=== PATIENT | male | born 1990 | race African-American/Black ===

== ENCOUNTER 2020-06-13 23:53 | Emergency (ER) | payer SELFPAY ==
[~2020-06-13] VITALS: Ht 175.3 cm; Wt 74.0 kg
--- NOTE | 2020-06-14 00:03 | NUR ---
THIS IS A 30 YO MALE BIB [facility] FROM [facility] FOR ETOH INTOXICATION AND LAYING ON FLOOR. PER [facility], PATIENT'S FRIEND CALLED BECAUSE "HE DIDN'T WANT TO DEAL WITH HIM". PATIENT IS SOMNOLENT, AROUSES TO PAINFUL STIMULI. EMESIS NOTED ON FRONT OF SHIRT. PLACED ON 2L NC DUE TO 88% ON RA. ALL OTHER VSS, PATIENT SLEEPING. PIV PLACED BY [facility], GIVEN 500ML NS AND 4MG ZOFRAN. MONITORING IN PLACE. Addendum: 06/14/20 at 0059 by BABAK PATIENT UNABLE TO RESPOND TO CLINICAL/PHYSICAL QUESTIONS
[2020-06-14 00:32] LABS: BASOPHILS # (AUTO) 0.01 x10^3/uL (0-0.1); BASOPHILS % (AUTO) 1 % (0-1); EOSINOPHILS # (AUTO) 0.02 x10^3/uL (0-0.4); EOSINOPHILS % (AUTO) 1 % (1-7); LYMPHOCYTES # (AUTO) 1.42 x10^3/uL (1-3.4); LYMPHOCYTES % (AUTO) 47 % (22-44); MD NO; MEAN CORPUSCULAR HEMOGLOBIN 30.2 pg (27.5-34.5); MEAN CORPUSCULAR HGB CONC 33.6 g/dL (33.2-36.2); MEAN CORPUSCULAR VOLUME 89.9 fL (81-97); MEAN PLATELET VOLUME 8.3 fL (7.4-10.4); MONOCYTES # (AUTO) 0.25 x10^3/uL (0.2-0.8); MONOCYTES % (AUTO) 8 % (2-9); NEUTROPHILS # (AUTO) 1.31 x10^3/uL (1.8-6.8); NEUTROPHILS % (AUTO) 44 % (42-75); PLATELET COUNT 212 x10^3/uL (130-400); RED BLOOD COUNT 4.51 x10^6/uL (4.38-5.82); RED CELL DISTRIBUTION WIDTH 14.4 % (9.4-14.8)
[2020-06-14 00:38] LABS: ALANINE AMINOTRANSFERASE 37 U/L (12-78); ALBUMIN 3.4 g/dL (3.4-5.0); ANION GAP 9 mmol/L (5-15); CALCIUM 7.6 mg/dL (8.5-10.1); CHLORIDE 106 mmol/L (98-107); CREATININE 0.92 mg/dL (0.7-1.3)
[2020-06-14 00:42] LABS: ALKALINE PHOSPHATASE 62 U/L (45-117); BILIRUBIN,TOTAL 0.3 mg/dL (0.2-1.0); TOTAL PROTEIN 6.6 g/dL (6.4-8.2)
--- NOTE | 2020-06-14 00:45 | NUR ---
PATIENT SLEEPING, RESPIRATIONS EVEN AND UNLABORED. VSS, NADN. MONITORING IN PLACE
--- NOTE | 2020-06-14 01:24 | NUR ---
PATIENT SLEEPING, STILL UNABLE TO COMMUNICATE BUT AROUSES TO LOUD VERBAL STIMULI NAD PAINFUL STIMULI BUT FALLS BACK ASLEEP IMMEDIATELY AFTER. PATIENT UNABLE TO ANSWER CLINICAL/PHYSICAL QUESTIONS.
--- NOTE | 2020-06-14 02:15 | NUR ---
PATIENT SLEEPING, ALL MONITORING IN PLACE, PATIENT STILL NOT COMMUNICATING TO THIS RN. CALL LIGHT IN REACH
--- NOTE | 2020-06-14 02:55 | NUR ---
REPORT GIVEN TO HERMILA CARRINGTON. PLAN OF CARE DISCUSSED
--- NOTE | 2020-06-14 04:00 | NUR ---
PT RESTING ON GURCINDY VSS. NO ACUTE DISTRESS NOTED. WILL CONT MONITOR. PT MTF.
--- NOTE | 2020-06-14 06:24 | NUR ---
PT O2 SAT DROPPED TO 88%, O2 VIA NC PLACED BACK ON PT, PT RESPONSIVE TO PAIN, FOLLOWS COMMANDS. MONITORING PLACED ON PT. VSS
--- NOTE | 2020-06-14 07:07 | NUR ---
ASSUMING CARE OF THIS PATIENT AT 0700, SBAR RECEVED AT BEDSIDE FROM HERMILA CARRINGTON.
[2020-06-14 07:27] VITALS: BP 129/68
--- NOTE | 2020-06-14 07:30 | NUR ---
PATIENT RESTING IN BED, PATIENT AROUSES TO VOICE AND FOLLOWS COMMANDS. NO C/O PAIN. VITAL SIGNS WITHIN NORMAL LIMITS. NO FURTHER NEEDS AT THIS TIME.
== END 2020-06-14 08:21 | disposition home or self-care (01) ==
LOC: ED 06-14 08:15
DX: F10.120 Alcohol abuse with intoxication, uncomplicated (principal); R11.10 Vomiting, unspecified; Y90.8 Blood alcohol level of 240 mg/100 ml or more
CPT/HCPCS: 36415; 80053; 80307; 85025; 99285